=== PATIENT | male | born 1960 | race Caucasian/White ===

== ENCOUNTER 2024-03-18 12:05 | Emergency (ER) | payer OTHER, SELFPAY ==
[2024-03-18 12:08] VITALS: BP 155/95
--- NOTE | 2024-03-18 12:24 | ED.GENMED ---
History of Present Illness
General
Chief Complaint: Headache
Source: patient
Exam Limitations: none
Time Seen by Provider: 03/18/24 12:16
History of Present Illness
History of Present Illness:
See MDM
Past History
Past History
ED Past Medical History: Other (He does have some left rotator cuff symptoms); Negative Asthma, HTN, Hypercholesterolemia or NIDDM
ED Past Surgical History: Orthopedic and Other
Social History
Tobacco: Non-smoker
Alcohol: Occasional
Drug: None
Personal:
Living: with family
Employment: Employed
Family History
Family History: Diabetes and Hypertension
Phy Exam
Physical Exam
Physical Exam:
See MDM
Course
Orders/Labs/Results
Orders:
Orders
03/18/24 12:21
CT Head W/o Iv Contrast Urgent
Comment:
Reason For Exam: R posterior headache
Vital Signs
Initial and Last Documented VS:
Initial Vital Signs
Temp Pulse Resp BP Pulse Ox
98.0 F 79 18 155/95 99
03/18/24 12:08 03/18/24 12:08 03/18/24 12:08 03/18/24 12:08 03/18/24 12:08
Last Documented Vital Signs
Temp Pulse Resp BP Pulse Ox
98.0 F 79 18 155/95 99
03/18/24 12:08 03/18/24 12:08 03/18/24 12:08 03/18/24 12:08 03/18/24 12:08
MDM/Problems Addressed
Differential Diagnosis Includes:
HPI and MDM Narrative:
63-year-old male presenting with persistent headache. He noticed it about a week ago. He woke up with right-sided posterior neck pain and decreased mobility. Patient states it felt like he slept on it wrong and pulled his neck. He went about his
daily routine and his daily chores which made things worse. Patient mobility has drastically improved but has persistent dull ache in neck
On exam, patient is extremely well-appearing nontoxic. He has no focal neurodeficits or weakness in his upper extremities. There is mild tenderness to his posterior paracervical musculature. No midline tenderness. Given persistence of headache,
will obtain CT head but otherwise discussed likely muscle strain and return precautions
Physical exam
General: Well appearing and non-toxic
HEENT: protecting airway. Pupils equal and reactive
Neck: supple. Mild muscle strain noted to right paracervical musculature
CV: No evidence of cyanosis
Resp: No accessory muscle use
Abd: Non-distended
Extremities: No deformities
Neuro: alert. Muscle strength grossly intact both arms
Psych: Normal affect
Skin: Intact
Problems Addressed including Acute and Chronic Conditions affecting care:
1. Neck pain and headache
Acuity: acute
Prognosis: stable
Details: Likely related to muscle strain. Given persistence of headache, will obtain CT head
Updates
CT head negative. Patient feels comfortable going home
Differential Diagnosis (but not limited to): Muscle strain, migraine, intracranial mass
Testing considered: Neck x-ray but there is no midline bony tenderness
Drug therapy (if applicable): OTC meds, please see d/c instruction regarding Rx drugs
Amount and/or Complexity of Data Reviewed
Clinical info obtained from: Patient
External data reviewed: N/A
Labs I independently reviewed (but not limited to): N/A
Radiology: The CT scan was personally and independently reviewed. In addition, official CT report reviewed.
Pulse Ox: not hypoxic
EKG independently reviewed: N/A
[employer]ing F[employer] Operator: N/A
Critical Care: N/A
Risk of Complication:
Social Determinants of health: Good social support
Discussed with other providers: N/A
Escalation of Care includes Admit/Obs: After being observed in the Emergency Department, pt stable for discharge.
Occasional wrong word or 'sound a like' substitutions may have occurred due to the inherent limitations of voice recognition software. Read the chart carefully and recognize, using context, where substitutions have occurred.
*Critical Care Note
Total Time (30-74mins, 75-104mins- exclusive of procedures): Not Applicable
ED Attending Note
-
Portions of this chart may have been created with voice recognition software.� Occasional wrong word or��sound alike� substitutions may have occurred due to the inherent limitations of voice recognition software.
Discharge Plan
Departure
Patient Disposition: Home (Routine Discharge)
Date of Disposition: 03/18/24
Time of Disposition: 13:10
Patient with high blood pressure during this ER visit?: Yes
Discharge Problem:
Headache
Instructions: Headache, Adult (DC), BLOOD PRESSURE
Prescriptions:
No Action
hydrocodone-acetaminophen 1 TABLET tablet
1 - 2 tab PO Q4HPRN PRN (Reason: moderate to severe pain) Qty: 10 0RF
Referrals:
Lazaro Glez MD [Family Provider] -
Activity Restrictions/Additional Instructions:
Please return for any worsening symptoms.
You may return at any time if you have further concerns.
Please follow up with your doctor at the first available appointment, preferably this week.
Thank you for choosing [facility].
Interventions
Interventions:
*Risk Screen - Suicide Last Done: 03/18/24 12:08
*General Assessment Last Done: 03/18/24 12:08
*Neglect/Abuse Screening Last Done: 03/18/24 12:08
ED- Fall Risk Assessment Last Done: 03/18/24 12:26
*ED COVID-19 Vaccine History Last Done: 03/18/24 12:08
ED- Neurological Assessment Last Done: 03/18/24 12:25
Discharge Date and Time
Print Language: MONEGASQUE
[2024-03-18 12:26] VITALS: BMI 25.5
== END 2024-03-18 13:44 | disposition home or self-care (01) ==
LOC: EMR 12:05
PROVIDERS: EMERGENCY PHYSICIAN Student in an Organized Health Care Education/Training Program; FAMILY PHYSICIAN Internal Medicine
DX: R51.9 Headache, unspecified (principal); E11.9 Type 2 diabetes mellitus without complications; I10 Essential (primary) hypertension; Z82.49 Family history of ischemic heart disease and other diseases of the circulatory system; Z83.3 Family history of diabetes mellitus
CPT/HCPCS: 99284; 70450